=== PATIENT | male | born 1985 | race African-American/Black ===

== ENCOUNTER → 2023-10-11 | Outpatient (CLI) | payer BC ==
[2023-10-11 14:34] VITALS: BP 111/77; PULSE 90; RESP 18; TEMP 98
--- NOTE | 2023-10-11 14:56 | P.SLEEP ---
History of Present Illness DATE: 10/11/2023 CONSULTATION/NEW PATIENT EVALUATION HISTORY OF PRESENT ILLNESS/SLEEP-WAKE EVALUATION: 58-year-old gentleman had be en evaluated in the sleep center for possible obstructive sleep apnea hypopnea syndrome. SLEEP SCHEDULE: Usually sleep schedule from midnight to 7 AM on weekdays and from 2 AM until 10 AM on weekend. FALLING ASLEEP: No problems with falling asleep. DURING SLEEP: Patient has loud snoring and witnessed episodes of stop breathing during the sleep by his . Patient wakes up from sleep 2 times with nocturia and episodes of gasping for air. Positive history of heartburn during the sleep. Positive history of choking. No history of hypnogogical hallucinations, sleep paralysis, or cataplexy. DURING THE DAY/WAKE STATE: In the morning patient wake up tired, has difficulties to pay attention, has problems with memory, concentration, irritability, depression and anxiety.. [place] sleepiness scale is in very high range of 20 to. Patient may take up to 2 naps during the day. PAST MEDICAL HISTORY: Asthma, sinuses problems, headaches, acid reflux. PAST SURGICAL HISTORY: Hand surgery. MEDICATIONS: Please see below. SOCIAL HISTORY: Please see below. FAMILY HISTORY: Please see below. REVIEW OF SYSTEMS: Loud snoring, multiple awakenings from sleep, sleepiness during the day. No fevers. No double vision. No recent chest pain. No shortness of breath. No abdominal pain. No bleeding episodes. No blood in urine. No seizure episodes. PHYSICAL EXAMINATION: GENERAL: A pleasant patient without any distress. VITAL SIGNS: Please see below, weight 253.8 pounds, BMI 39.6. HEENT: PERRLA, EOMI. Evaluation of oropharynx showed tongue protrudes midline, low position of soft palate Mallampati 4. NECK: Supple. No JVD. Thyroid is not palpable. 17-1/4 inches in circumference. LUNGS: Clear to percussion and to auscultation. Good air exchange. No wheezing or rhonchi. HEART: S1, S2 regular. No murmurs, gallops or rubs. ABDOMEN: Soft and nontender. Bowel sounds are present. No organomegaly appreciated. EXTREMITIES: No clubbing or cyanosis. ANIMAL SCIENCE PROFESSOR: Awake, alert, and oriented x3. Cranial nerves 2 to 7 intact. There is no fasciculation or atrophy noted. No focal deficits observed. ASSESSMENT: 1. Loud snoring, witnessed episodes of stop breathing during the sleep, extremely low position of soft palate Mallampati 4, wide neck 17-1/4 inches in circumference, sleepiness during the day. Obstructive sleep apnea hypopnea syndrome. 2. Significant excessive daytime sleepiness with [place] Sleepiness Scale of 16 dictate necessity to include hypersomnia and narcolepsy and differential diagnosis. 3. History of asthma. 4. History of sinuses problems. 5 headaches. 6 . Acid reflux. 7. Status post hand surgery. 8. Obesity, BMI 39.6 PLAN: 1. Home sleep apnea test for evaluation of patient's breathing during sleep. 2. Following plan after reading sleep study. 3. Preferable position during sleep on the side. 4. No driving if patient feels any sleepiness. Patient is aware of civil and criminal liability for unsafe driving. 5. Sleep hygiene with regular sleep time for at least 7.5-8 hours. 6. Watching weight. Thank you very much for referring this patient for consultation. Sincerely, Mack Deng MD, PhD, FAASM. Diplomat of [place] [employer], Sleep Medicine Board by [employer] Health Analyst of [facility] [place] Past Medical History Past Medical History: Asthma, GERD/Reflux Additional Past Medical History / Comment(s): Seasonal allergies History of Any Multi-Drug Resistant Organisms: None Reported Past Surgical History: Orthopedic Surgery Additional Past Surgical History / Comment(s): RIGHT HAND AND CHIN SURGERY Past Psychological History: No Psychological Hx Reported Smoking Status: Former smoker Past Alcohol Use History: Occasional Past Drug Use History: Marijuana Additional Drug Use History / Comment(s): Smoke marijuana - Past Family History Mother Family Medical History: CVA/TIA, Hypertension Additional Family Medical History / Comment(s): Arthritis, Lupus, Restless legsthyroid, anemia, snoring (dad had bad asthma) Medications and Allergies Home Medications Medication Instructions Recorded Confirmed Type Albuterol Inhaler [Ventolin Hfa 2 puff INHALATION Q6HR PRN #1 02/10/15 Rx Inhaler] inhaler Ciprofloxacin HCl [Cipro] 500 mg PO Q12HR #14 tablet 02/10/15 Rx predniSONE [Deltasone] 20 mg PO BID #14 tab 02/10/15 Rx Allergies Allergy/AdvReac Type Severity Reaction Status Date / Time No Known Allergies Allergy Verified 02/10/15 08:14 Physical Exam Vitals: Vital Signs Temp Pulse Resp BP Pulse Ox 10/11/23 14:33 98.0 F 90 18 111/77 94 L Intake and Output 10/10/23 10/11/23 10/11/23 22:59 06:59 14:59 Other: Weight 114.986 kg Sleep Note - Sleep Data ESS Total: 22 - Sleep Note Sleep Note: Temperature: 98.0 F Pulse Rate: 90 Respiratory Rate: 18 Blood Pressure: 111/77 SpO2: 94 Height: 5 ft 7 in Weight: 114.986 kg BMI: Neck Circumference: 17.2
== END ==
LOC: 3 N SLEEP 13:53
PROVIDERS: ATTEND Internal Medicine
DX: G47.33 Obstructive sleep apnea (adult) (pediatric) (principal); G47.10 Hypersomnia, unspecified; R51.9 Headache, unspecified; K21.9 Gastro-esophageal reflux disease without esophagitis; J45.909 Unspecified asthma, uncomplicated; E66.9 Obesity, unspecified; Z68.39 Body mass index [BMI] 39.0-39.9, adult; Z98.890 Other specified postprocedural states; Z87.09 Personal history of other diseases of the respiratory system; Z79.899 Other long term (current) drug therapy
CPT/HCPCS: 99202

== ENCOUNTER → 2023-10-29 | Outpatient (CLI) | payer BC ==
--- NOTE | 2023-10-31 13:37 | P.PCN ---
Description of Procedure: CLINICAL: A home sleep apnea test has been done for confirmation of possible obstructive sleep apnea-hypopnea syndrome. DESCRIPTION OF PROCEDURE: RESULTS: Recording time was 7 hours 55 minutes. Evaluation time was 7 hours 56 minutes. Evaluation time is sufficient for making conclusion about results of the test. Raw data of sleep recording has been reviewed and is adequate. Respiratory channel showed 209 apneas and 197 hypopneas. Apnea-hypopnea index was 57.1 per hour. Pulse rate in the range between minimum 40, maximum 230, average 70 by computer calculation. Lowest desaturation was 69%. IMPRESSION: 1. Extremely Severe Obstructive Sleep Apnea Hypopnea Syndrome with severe oxygen desaturation. Please see other impressions from consultation. PLAN: 1. The patient should have PAP titration for correction of respiratory abnormallities during sleep. 2. Sleep hygiene with regular time in bed for at least 8 hours. 3. Watching and losing weight. 4. No driving if feeling any sleepiness. Thank you very much for allowing me to participate in the management of your patient. Sincerely, Mack Deng MD, PhD, FAASM Diplomat of [employer] [employer] Sleep Medicine Board of [place] [employer] Marine Machinist of [facility] [place]
== END ==
LOC: 3 N SLEEP 12:57
PROVIDERS: ATTEND Internal Medicine
DX: G47.33 Obstructive sleep apnea (adult) (pediatric) (principal); G47.36 Sleep related hypoventilation in conditions classified elsewhere; Z87.891 Personal history of nicotine dependence